=== PATIENT | male | born 2000 | race Caucasian/White ===

== ENCOUNTER 2023-12-22 12:56 | Emergency (ER) | payer OTHER, SELFPAY ==
[2023-12-22 13:01] VITALS: BP 136/90
[2023-12-22 13:32] VITALS: BMI 23.7
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
== END 2023-12-22 15:00 | disposition home or self-care (01) ==
LOC: EMR 12:56
PROVIDERS: EMERGENCY PHYSICIAN Emergency Medicine; FAMILY PHYSICIAN Family Medicine
DX: S63.502A Unspecified sprain of left wrist, initial encounter (principal); V89.2XXA Person injured in unspecified motor-vehicle accident, traffic, initial encounter
CPT/HCPCS: 99283; 73110

== ENCOUNTER 2024-11-10 21:02 | Emergency (ER) | payer OTHER, SELFPAY ==
[2024-11-10 21:08] VITALS: BP 145/93
--- NOTE | 2024-11-10 23:10 | ED.GENMED ---
History of Present Illness
General
Chief Complaint: Musculo-Skeletal Complaint
Source: patient
Exam Limitations: none
Time Seen by Provider: 11/10/24 21:35
Nursing documentation reviewed up to this point in time: agreed with
History of Present Illness
History of Present Illness:
Patient is a 24-year-old male who presents to the emergency department for evaluation of left forearm injury. Patient states he was playing at a baseball game when he was hit by pitch as he was batting in his left forearm. He noted relatively
immediate swelling in the area and decided to come out of the game. He reports persistent pain in his left forearm prompting his visit to the emergency department.
Patient denies any numbness/tingling in left arm/hand. He denies any bony pain in his left wrist or left elbow. No limited range of motion at elbow or wrist.
Patient denies sustaining any other injuries.
Past History
Social History
Tobacco: Non-smoker
Drug: None
Review of Systems
Review of Systems
Allergies reviewed?: Yes
All Other Systems: ROS reviewed and negative except as documented in HPI and ROS
Phy Exam
Physical Exam
Physical Exam:
Vitals: Mild hypertension, otherwise vital signs stable. Afebrile
General: Patient is well appearing, no acute distress
Skin: Warm and dry, no rashes or lesions
Head: Normocephalic, atraumatic
Throat: Protecting airway
Neck: Normal ROM, no cervical spine tenderness
Cardiac: Regular rate
Pulm: No apparent respiratory distress
Abdomen: Nondistended
Extremities: Erythema and edema to left mid forearm at dorsal aspect. No obvious deformity. Full range of motion in left wrist and left elbow. Some bony tenderness noted to mid-proximal left forearm. 2+ palpable radial pulse in L UE. Normal
capillary refill.
Neuro: Grossly intact
Psychiatric: Normal affect.
Course
Orders/Labs/Results
Orders:
Orders
11/10/24 21:10
CR Forearm - Left 2 View Urgent
Comment:
Reason For Exam: baseball injury
Vital Signs
Initial and Last Documented VS:
Initial Vital Signs
Temp Pulse Resp BP Pulse Ox
98.0 F 75 18 145/93 98
11/10/24 21:08 11/10/24 21:08 11/10/24 21:08 11/10/24 21:08 11/10/24 21:08
Last Documented Vital Signs
Temp Pulse Resp BP Pulse Ox
98.0 F 75 18 145/93 98
11/10/24 21:08 11/10/24 21:08 11/10/24 21:08 11/10/24 21:08 11/10/24 23:13
MDM/Problems Addressed
Differential Diagnosis Includes:
Not limited to: Contusion, hematoma, fracture, etc.
MDM/Problems Addressed:
24-year-old male presenting with left forearm and wrist pain struck with a baseball. No other injuries sustained. Vitals as above. Physical exam reveals mild edema of left proximal forearm without any obvious deformity. He has full range of
motion in left elbow and left wrist with normal neurovascular exam. X-ray reveals no evidence of fracture. Ultimately suspect contusion/soft tissue injury. Will Lester wrap and advised rest, ice, compression, elevation, NSAIDs for pain. Advise
follow-up with primary care/orthopedics as needed. Return precautions discussed
Chronic conditions affecting care:
N/A
Acute Exacerbation and/or Progression of Chronic Illness:
N/A
*Radiology
Radiology exam reviewed: preliminary read by ED provider (Left forearm x-ray reviewed by me-no acute fracture) and radiology read reviewed
*Pulse Oximetry
SaO2: 98
Patient hypoxic: no
*EKG
Interpreted by ED Provider?: NA
*Construction Sales Manager Interpretation
Rate: Construction Sales Manager- N/A
*Critical Care Note
Total Time (30-74mins, 75-104mins- exclusive of procedures): Not Applicable
ED Attending Note
-
Portions of this chart may have been created with voice recognition software.� Occasional wrong word or��sound alike� substitutions may have occurred due to the inherent limitations of voice recognition software.
Discharge Plan
Departure
Patient Disposition: Home (Routine Discharge)
Date of Disposition: 11/10/24
Time of Disposition: 22:47
Patient with high blood pressure during this ER visit?: Yes
Condition: Good
Discharge Problem:
Contusion of left arm
Instructions: Contusion (DC), BLOOD PRESSURE
Referrals:
Ramesh Bowers MD [Family Provider, [facility]] - As needed
Activity Restrictions/Additional Instructions:
RETURN TO THE EMERGENCY DEPARTMENT WITH ANY INTRACTABLE PAIN, NUMBNESS/TINGLING IN LEFT ARM/HAND, RAPIDLY EXPANDING HEMATOMA OR SWELLING, WORSENING OF CURRENT SYMPTOMS, OR ANY OTHER CONCERNS
- As discussed�your x-ray showed no evidence of acute fracture. You likely sustained a soft tissue injury/contusion of your left arm.
- Continue to ice, elevate your left arm frequently over the next 2 days. Keep compressed with Lester bandage. Take Tylenol and/or Motrin as needed for pain.
- Limit any heavy lifting or strenuous activities until injury begins to heal.
- Follow-up with primary care for further evaluation/management as needed
Monitor your symptoms closely and return to the emergency department with any acute worsening/new symptoms or any other concerns
Interventions
Interventions:
*Risk Screen - Suicide Last Done: 11/10/24 21:09
*General Assessment Last Done: 11/10/24 21:09
*Neglect/Abuse Screening Last Done: 11/10/24 21:09
*Nursing Disposition Last Done: 11/10/24 22:53
ED-Musculoskeletal Assessment Last Done: 11/10/24 21:50
Discharge Date and Time
Discharge Date/Time: 11/10/24 22:55
Print Language: FAROESE
== END 2024-11-10 22:55 | disposition home or self-care (01) ==
LOC: EMR 21:02
PROVIDERS: EMERGENCY PHYSICIAN Emergency Medicine; FAMILY PHYSICIAN Family Medicine
DX: S50.12XA Contusion of left forearm, initial encounter (principal); W21.03XA Struck by baseball, initial encounter
CPT/HCPCS: 99283; 73090